=== PATIENT | male | born 1945 | race Caucasian/White ===

== ENCOUNTER 2018-08-09 10:49 | Emergency (ER) | payer MEDICARE ==
[~2018-08-09] VITALS: Ht 177.8 cm; Wt 68.0 kg
[2018-08-09] MEDS ORDERED: OMEP10SU2 PO (11:04)
[2018-08-09] MEDS ORDERED: SODIUM CHLORIDE 0.9% 1,000 ML IV ONE (11:11)
[2018-08-09] MEDS ORDERED: ONDANSETRON 2MG/ML, 2ML ONE (11:18)
[2018-08-09] MEDS ORDERED: MORPHINE SULFATE 4 MG/ML, 1ML ONE (11:18)
[2018-08-09] MEDS ORDERED: MORPHINE SULFATE 4 MG/ML, 1ML IVPush PRN (11:30)
[2018-08-09] MEDS ORDERED: PLEASE ENTER ALLERGIES MC SCH (11:30)
[2018-08-09] MEDS ORDERED: ONDANSETRON 2MG/ML, 2ML IVPush ONE (11:30)
[2018-08-09] MEDS ORDERED: SODIUM CHLORIDE FLUSH 10ML SYR IVF ONE (11:30)
[2018-08-09 11:39] LABS: ALBUMIN 3.2 g/dL (3.4-5.0); ANION GAP 5 mmol/L (5-15); CALCIUM 8.5 mg/dL (8.5-10.1); CHLORIDE 107 mmol/L (98-107); CREATININE 0.92 mg/dL (0.7-1.3)
[2018-08-09 11:42] LABS: BASOPHILS # (AUTO) 0.01 x10^3/uL (0-0.1); BASOPHILS % (AUTO) 0 % (0-1); EOSINOPHILS % (AUTO) 0 % (1-7); LYMPHOCYTES # (AUTO) 0.84 x10^3/uL (1-3.4); LYMPHOCYTES % (AUTO) 10 % (22-44); MD NO; MEAN CORPUSCULAR HEMOGLOBIN 26.8 pg (27.5-34.5); MEAN CORPUSCULAR HGB CONC 32.9 g/dL (33.2-36.2); MEAN CORPUSCULAR VOLUME 81.3 fL (81-97); MEAN PLATELET VOLUME 8.2 fL (7.4-10.4); MONOCYTES % (AUTO) 10 % (2-9); NEUTROPHILS # (AUTO) 6.96 x10^3/uL (1.8-6.8); NEUTROPHILS % (AUTO) 80 % (42-75); PLATELET COUNT 248 x10^3/uL (130-400); RED BLOOD COUNT 3.53 x10^6/uL (4.38-5.82); RED CELL DISTRIBUTION WIDTH 16.3 % (9.4-14.8)
[2018-08-09] MEDS ORDERED: PROPOFOL 10 MG/ML, 20ML ONE (12:18)
[2018-08-09] MEDS ORDERED: PROPOFOL 10 MG/ML, 20ML IV ONE (12:30)
[2018-08-09 14:27] VITALS: BP 121/64
== END 2018-08-09 14:36 | disposition home or self-care (01) ==
LOC: ED 13:56
DX: S73.02 Obturator subluxation and dislocation of hip (principal); X50.9XXA Other and unspecified overexertion or strenuous movements or postures, initial encounter; Y93.89 Activity, other specified; Y92.009 Unspecified place in unspecified non-institutional (private) residence as the place of occurrence of the external cause; Y99.8 Other external cause status
CPT/HCPCS: 27265; 36415; 73502; 80048; 82040; 85025; 99285; J2405; J7030

== ENCOUNTER 2018-08-26 09:01 | Inpatient (IN) | payer MEDICARE ==
[~2018-08-26] VITALS: Ht 177.8 cm; Wt 62.6 kg
[~2018-08-26 09:01] MED LIST: EPINEPHRINE 1 MG/ML, 1ML ONE; KETOROLAC 60 MG/2 ML ONE; OMEP10SU2 PO; ROPIvacaine/PF 0.2%, 20 ML ONE; TRANEXAMIC ACID 100 MG/ML, 10ML ONE; TRIAMCINOLONE ACETONIDE 40 MG/ML, 1ML ONE
[2018-08-26] MEDS ORDERED: ROPivacaine/PF 0.2%, 10 ML ONE (09:28)
[2018-08-26] MEDS ORDERED: LACTATED RINGERS 1,000 ML IV SCH (10:05)
[2018-08-26] MEDS ORDERED: PRAMIPEXOLE PO (10:26)
[2018-08-26] MEDS ORDERED: MAGN400T36 PO (10:26)
[2018-08-26] MEDS ORDERED: CALC200T3 PO (10:26)
[2018-08-26] MEDS ORDERED: ACETAMINOPHEN 500 MG TABLET PO ONE (10:30)
[2018-08-26] MEDS ORDERED: VANCOMYCIN PER PHARMACY MC ONE (10:30)
[2018-08-26] MEDS ORDERED: GABAPENTIN 300 MG CAPSULE PO ONE (10:30)
[2018-08-26] MEDS ORDERED: LIDOCAINE-MPF 1%, 2ML INFIL ONE (10:30)
[2018-08-26] MEDS ORDERED: PLEASE ENTER HEIGHT AND WEIGHT MC SCH (10:30)
[2018-08-26 10:34] VITALS: BP 124/71
[2018-08-26] MEDS ORDERED: PRAM0.25 PO (10:52)
[2018-08-26 10:58] LABS: MICROSCOPIC INDICATED
[2018-08-26] MEDS ORDERED: MIDAZOLAM 1 MG/ML, 2ML ONE (10:59)
[2018-08-26] MEDS ORDERED: FENTANYL PF 250 MCG/5ML ONE (10:59)
[2018-08-26 11:00] LABS: CULTURE INDICATED? NO
[2018-08-26] MEDS ORDERED: PROMETHAZINE 25 MG/ML, 1ML IV PRN (11:00)
[2018-08-26] MEDS ORDERED: ALBUTEROL/IPRATROPIUM 2.5MG/0.5MG, 3 ML NPPB PRN (11:00)
[2018-08-26] MEDS ORDERED: hydrALAzine 20 MG/ML, 1ML IV PRN (11:00)
[2018-08-26] MEDS ORDERED: VANCOMYCIN 1,200 MG in SODIUM CHLORIDE 0.9% 250 ML IV ONE (11:00)
[2018-08-26] MEDS ORDERED: SCOPOLAMINE PATCH, 1.5MG PATCH.TD72 TD PRN (11:00)
[2018-08-26] MEDS ORDERED: LABETALOL 5MG/ML, 20ML IV PRN (11:00)
[2018-08-26] MEDS ORDERED: GABAPENTIN 300 MG CAPSULE ONE (11:00)
[2018-08-26] MEDS ORDERED: ACETAMINOPHEN 500 MG TABLET ONE (11:00)
[2018-08-26] MEDS ORDERED: HYDROmorphone 1 MG/ML, 1ML IV PRN ×2 (11:00→12:00)
[2018-08-26] MEDS ORDERED: ONDANSETRON 2MG/ML, 2ML IV PRN ×2 (11:00→12:00)
[2018-08-26] MEDS ORDERED: MIDAZOLAM 1 MG/ML, 2ML IV PRN (11:00)
[2018-08-26] MEDS ORDERED: MEPERIDINE/PF 25MG/0.5ML IVPush PRN (11:00)
[2018-08-26] MEDS ORDERED: PHENYLEPHRINE 10 MG/ML ONE (11:38)
[2018-08-26] MEDS ORDERED: ROPivacaine/PF 0.2%, 10 ML INFIL ONE (11:59)
[2018-08-26] MEDS ORDERED: EPINEPHRINE 1 MG/ML, 1ML INFIL ONE (11:59)
[2018-08-26] MEDS ORDERED: TRANEXAMIC ACID 100 MG/ML, 10ML TP ONE (11:59)
[2018-08-26] MEDS ORDERED: ACETAMINOPHEN 650 MG/20.3 ML UDC PO PRN (12:00)
[2018-08-26] MEDS ORDERED: TRANEXAMIC ACID 1,000 MG in SODIUM CHLORIDE 0.9% 100 ML IVPB ONE (12:00)
[2018-08-26] MEDS ORDERED: SENNA/DOCUSATE TABLET PO PRN (12:00)
[2018-08-26] MEDS ORDERED: ALUMINUM/MAG/SIMETHICONE 30 ML UDC PO PRN (12:00)
[2018-08-26] MEDS ORDERED: OXYcodone IR 5MG TABLET PO PRN (12:00)
[2018-08-26] MEDS ORDERED: PROMETHAZINE 12.5 MG SUPP PR PRN (12:00)
[2018-08-26] MEDS ORDERED: ONDANSETRON 4 MG TABLET PO PRN (12:00)
[2018-08-26] MEDS ORDERED: PROMETHAZINE 25 MG/ML, 1ML IM PRN (12:00)
[2018-08-26] MEDS ORDERED: DIPHENHYDRAMINE 25 MG CAPSULE PO PRN (12:00)
[2018-08-26] MEDS ORDERED: BISACODYL 10 MG SUPP PR PRN (12:00)
[2018-08-26] MEDS ORDERED: MAGNESIUM HYDROXIDE 8%, 30ML UDC PO PRN (12:00)
[2018-08-26] MEDS ORDERED: NEOSTIGMINE 1 MG/ML, 10ML ONE (12:49)
[2018-08-26] MEDS ORDERED: ONDANSETRON 2MG/ML, 2ML ONE (12:49)
[2018-08-26] MEDS ORDERED: GLYCOPYRROLATE 0.2MG/1ML, 5ML ONE (12:49)
[2018-08-26] MEDS ORDERED: CEFAZOLIN 1,000 MG ONE (12:49)
[2018-08-26] MEDS ORDERED: ROCURONIUM 10MG/ML,5ML ONE (12:49)
[2018-08-26] MEDS ORDERED: PROPOFOL 10 MG/ML, 20ML ONE (12:49)
[2018-08-26] MEDS ORDERED: DEXAMETHASONE 4 MG/ML, 1ML ONE (12:49)
[2018-08-26] MEDS ORDERED: OXYcodone 5 MG/5 ML ORAL.SOL UDC ONE ×2 (13:33→13:45)
[2018-08-26] MEDS ORDERED: FENTANYL PF 100 MCG/2ML ONE (13:33)
[2018-08-26] MEDS: OXYcodone 5 MG/5 ML ORAL.SOL UDC PO PRN ×2 (13:36→13:46)
[2018-08-26] MEDS: FENTANYL PF 100 MCG/2ML IV PRN ×2 (13:39→13:48)
[2018-08-26] MEDS: D5%-0.45NACL+KCL 20MEQ 1,000 ML IV SCH (15:14)
[2018-08-26] MEDS ORDERED: OMEPRAZOLE 10 MG CAPSULE.DR PO SCH (16:00)
[2018-08-26] MEDS: ASPIRIN 81 MG TABLET EC PO SCH (18:35)
[2018-08-26] MEDS: CEFAZOLIN PMX 1GM/50ML 50 ML IVPB SCH (20:27)
[2018-08-26] MEDS: OMEPRAZOLE 10 MG CAPSULE.DR PO SCH (21:23)
[2018-08-26] MEDS: DOCUSATE 100 MG CAPSULE PO SCH (21:23)
[2018-08-26] MEDS ORDERED: PRAMIPEXOLE 0.25MG TABLET PO SCH (22:00)
[2018-08-27] VITALS: BP 93/50
[2018-08-27] MEDS: D5%-0.45NACL+KCL 20MEQ 1,000 ML IV SCH (00:25)
[2018-08-27 03:58] VITALS: BP 90/46
[2018-08-27] MEDS: CEFAZOLIN PMX 1GM/50ML 50 ML IVPB SCH (04:16)
[2018-08-27] MEDS: ASPIRIN 81 MG TABLET EC PO SCH (05:41)
[2018-08-27] MEDS ORDERED: DEXAMETHASONE 4 MG/ML, 1ML IVPush SCH (06:00)
[2018-08-27] MEDS: OMEPRAZOLE 10 MG CAPSULE.DR PO SCH (06:08)
[2018-08-27 07:57] VITALS: BP 103/61
[2018-08-27] MEDS: DOCUSATE 100 MG CAPSULE PO SCH (08:37)
[2018-08-27] MEDS ORDERED: TAMSULOSIN 0.4 MG CAP.ER.24H PO SCH (09:00)
[2018-08-27] MEDS ORDERED: PRAMIPEXOLE 0.25MG TABLET PO SCH (09:00)
[2018-08-27] MEDS ORDERED: MULTIVITAMINS/MINERALS TABLET PO SCH (09:00)
[2018-08-27] MEDS ORDERED: KETOROLAC 30 MG/1 ML IV SCH (12:00)
== END 2018-08-27 11:55 | disposition home or self-care (01) | DRG 468 ==
LOC: ORIP 09:01 → 4NOR 14:20 → DCLOUNGE 08-27 11:40
PROVIDERS: ADMIT Orthopaedic Surgery; ATTEND Orthopaedic Surgery
PROC: 0SPE0JZ Removal of Synthetic Substitute from Left Hip Joint, Acetabular Surface, Open Approach (ICD-10-PCS; 2018-08-26)
PROC: 0SRE01A Replacement of Left Hip Joint, Acetabular Surface with Metal Synthetic Substitute, Uncemented, Open Approach (ICD-10-PCS; principal; 2018-08-26 11:15)
DX: T84.021A Dislocation of internal left hip prosthesis, initial encounter (principal); Y79.2 Prosthetic and other implants, materials and accessory orthopedic devices associated with adverse incidents; Y92.89 Other specified places as the place of occurrence of the external cause
CPT/HCPCS: 36415; 72170; 81001; 85014; 85018; 86850; 86900; 87070; 87075; 87205; 93005; C1713; G0378; J0171; J0690; J1100; J1885; J2250; J2405; J2704; J2710; J2795; J3010; J3301; J3370; J3490; C1776; J2370; J3480; J7050; J7120